=== PATIENT | female | born 1990 | race Caucasian/White ===

== ENCOUNTER 2017-06-18 06:00 | Inpatient (IN) ==
[2017-06-18] MEDS ORDERED: Metoclopramide 10 MG/2 ML VIAL IVP PRN (06:39)
[2017-06-18] MEDS ORDERED: Naloxone 0.4 MG/ML INJ IVP PRN (06:39)
[2017-06-18] MEDS ORDERED: Famotidine 20 MG/2 ML VIAL IVP PRN (06:39)
[2017-06-18] MEDS ORDERED: miSOPROStol 100 MCG TABLET PO ONE (06:45)
[2017-06-18] MEDS ORDERED: Ringers Solution, Lactated 1,000 ML IVC SCH (06:45)
[2017-06-18 08:13] LABS: Amphetamine Screen,Urine Negative ng/mL (Cutoff=1000); Barbiturate Screen,Urine Negative ng/mL (Cutoff=200); Benzodiazepines Screen,Urine Negative ng/mL (Cutoff=200); Cannabinoid Screen,Urine Negative ng/mL (Cutoff = 50); Cocaine Screen,Urine Negative ng/mL (Cutoff= 300); Opiate Screen,Urine Negative ng/mL (Cutoff=300); Phencyclidine Screen,Urine Negative ng/mL (Cutoff=25)
[2017-06-18 09:03] LABS: Basophils % 0.2 %; Eosinophils # 0.1 K/mcL (0.0-0.6); Eosinophils % 0.9 %; Immature Granulocytes % 0.6 % (0-4); Lymphocytes # 1.2 K/mcL (0.6-4.6); Lymphocytes % 13.3 %; Mean Corpuscular HGB Conc 34.4 g/dL (31.6-35.5); Mean Corpuscular Hemoglobin 30.4 pg (28.0-33.3); Mean Corpuscular Volume 88.2 fL (83.0-100.0); Mean Platelet Volume 11.3 fL (9.4-12.4); Monocytes # 0.8 K/mcL (0.0-1.3); Monocytes % 8.4 %; Neutrophils # 7.1 K/mcL (1.6-8.9); Platelet Count 170 K/mcL (140-400); Red Blood Count 4.08 M/mcL (3.82-4.97); Red Cell Distribution Width 14.3 % (11.5-14.5); Segmented Neutrophils % 76.6 %
[2017-06-18 09:05] LABS: Hemoglobin 12.4 g/dL (11.5-15.4)
--- NOTE | 2017-06-18 12:02 | OB/GYN History & Physical ---
Date of Encounter: 06/18/17 Time of Encounter: 11:51 Assessment and Plan (1) 39 weeks gestation of Current visit: Yes Status: Acute Admit to labor and delivery Oral Cytotec Labs-CBC Continuous electronic monitoring Pain management plan-epidural Anticipate Dr. Waggoner as OB concrete saw operator and is available as needed (2) Gestational diabetes mellitus (GDM) affecting first Current visit: Yes Status: Acute History of Present Illness Chief complaint: IOL HPI: Ms. Colon is a 27 year old female with an estimated date of of 06/22/17 at 39 weeks and 3 days gestation dated by early ultrasound. She presents today for induction of labor secondary to gestational diabetes controlled with oral hypoglycemics. She denies contractions, loss, vaginal bleeding and reports positive movement. Her course has been complicated by gestational diabetes. She received care from the midwives. records are available in her chart and have been reviewed. Labs: O+ GBS negative HIV negative Hep B negative T. Palladium negative Varicella immune Rubella immune Past Med Surg Social Fam HX - Past Medical History Psychiatric history: anxiety - Past Surgical History Surgical History: no surgical history - Social History Smoking Status: Former smoker Alcohol use: none Drug use: none - Family History Mother Living Status: Still Living Hx Family Cardiac Disorders: Yes (htn) Hx Family Respiratory Disorders: No Hx Family Cancer: No Hx Family GI Disorders: No Hx Family Genitourinary Disorders: No Hx Family Endocrine Disorder: Yes (DM) Hx Family Musculoskeletal Disorders: No Hx Family Neuromuscular Disorders: No Hx Family Neurologic Disorders: No Hx Family HEENT Disorders: No Hx Family Autoimmune Disorders: No Hx Family Reproductive Disorders: No Hx Family Psychosocial Disorders: Yes (Anxiety) Obstetrical History - Pregnancies : 1 Para: 0 Term: 0 : 0 Ab's: 0 Livin Medications and Allergies Ferrous Sulfate [High Potency Iron] 60 mg PO DAILY 06/18/17 [History] Metformin HCl [Metformin HCl ER] 1 tab PO DAILY 06/18/17 [History] Vit/Iron Fumarate/FA [ Tablet] 1 tab PO DAILY 06/18/17 [History ] 3 Allergy/AdvReac Type Severity Reaction Status Date / Time No Known Drug Allergies Allergy none Verified 06/18/17 06:36 Review of System OB All systems PM: reviewed and no additional remarkable complaints except as stated Exam - Constitutional Constitutional: well developed, well nourished, no acute distress, average body habitus - HEENT HEENT: Normocephaly, Mucus Membranes Moist - Neck Neck exam: full ROM - Lungs Respiratory exam: CTAB - Cardiovascular Cardiovascular exam: RRR, +S1, +S2 - Breasts Breast: bilateral: normal - Abdomen Abdomen: Present: bowel sounds normal, gravid, non tender - Extremities Extremities exam: normal inspection, radial pulses palpable and symmetrical - Vulva Vulva: bilateral: normal - Vagina Vagina: Present: normal moisture - Cervix Dilation: 2 Effacement: 60 Station: -2 - Uterus Uterus exam: Present: normal size, normal contour - Adnexa Adnexa: bilateral: normal - Anus/Rectum Anus/Rectum: Present: normal perianal skin Results Result Diagrams: 06/18/17 08:40 06/18/17 06:55 All other labs normal. - VTE Reasons for not Prescribing Prophylaxis: Treatment not Indicated - Low risk for VTE
--- NOTE | 2017-06-18 16:14 | OB Labor Progress Note ---
Date of Encounter: 06/18/17 Time of Encounter: 15:00 Labor Progress Note - Subjective Subjective: Pt states she is feeling comfortable between contractions but is aware of contractions. - Cervix Cervix: 4/80/-1 - Heart Tones Heart Tones: Baseline 120 Moderate variability Accelerations present 15 x 15 No decelerations FHR category I - [place]: Contractions every 2-5 minutes and palpate moderate - Interventions Interventions: Ambulation and birthing ball - Plan Plan: Continue expectant management Ambulating Intermittent protocol Anticipate
--- NOTE | 2017-06-18 17:13 | OB Labor Progress Note ---
Date of Encounter: 06/18/17 Time of Encounter: 17:11 Labor Progress Note - Subjective Subjective: Pt resting comfortably. She states "I don't feel like anything is happening." - Cervix Cervix: 4/80/-1 - Heart Tones Heart Tones: Baseline 130 Moderate variability Accelerations present 15x15 No decelerations FHR category I - [place] Beat[place]: Contractions every 5+ minutes and palpate mild - Interventions Interventions: SVE pitocin - Plan Plan: Continue expectant management Start pitocin and and titrate to adequate contractions May have epidural upon request Anticipate
[2017-06-18] MEDS ORDERED: Oxytocin 20 units/ LR 1000 mL 20 UNIT/1,000 ML BAG IVC SCH (17:15)
[2017-06-18] MEDS ORDERED: Oxytocin 20 units/ LR 1000 mL 20 UNIT/1,000 ML BAG IVC ONE (17:17)
--- NOTE | 2017-06-18 19:30 | OB Labor Progress Note ---
Date of Encounter: 06/18/17 Time of Encounter: 19:28 Labor Progress Note - Subjective Subjective: Pt reports she is more aware of contractions but is not yet ready for epidural. - Cervix Cervix: 4/100/0 - Heart Tones Heart Tones: Baseline 140 Moderate variability Accelerations present 15x15 No decelerations FHR Category I - [place]: Contractions every 2-3 minutes and palpate mild to moderate - Interventions Interventions: SVE - Plan Plan: Continue expectant management Continue pitocin augmentation Anticipate Dr. Waggoner aware of POC and agrees
[2017-06-18] MEDS: *HR* Nalbuphine 10 MG/ML AMPUL IVP PRN (22:43)
--- NOTE | 2017-06-19 00:10 | OB Labor Progress Note ---
Date of Encounter: 06/19/17 Time of Encounter: 00:08 Labor Progress Note - Subjective Subjective: Patient resting comfortably with Nubain - Cervix Cervix: 5/100/0 - Heart Tones Heart Tones: Baseline 125 Moderate variability No Accelerations No decelerations Pseudo-sinusoidal pattern after Nubain administration heart rate category II - [place].F. [place] J[place]. [place]: Contractions every 2-3 minutes - Plan Plan: Continue induction management Monitor blood glucose every 4 hours Epidural as needed Anticipate
[2017-06-19] MEDS ORDERED: Epidural Premix (fent/bupiv) 110 ML EP SCH (01:15)
[2017-06-19] MEDS: *HR* Nalbuphine 10 MG/ML AMPUL IVP PRN (03:11)
[2017-06-19] MEDS ORDERED: Epidural Premix (fent/bupiv) 110 ML EP ONE ×2 (03:15→11:58)
--- NOTE | 2017-06-19 03:58 | Anesthesia Evaluation PreOp ---
Date of Encounter: 06/19/17 Time of Encounter: 03:15 - Past History Planned Operation: cipriano Cardiac History: Denies any Significant Hx Pulmonary History: Denies Any Significant HX BOOT MAKER History: Denies Any Significant HX Other Medical History: Denies Any Significant HX Anesthesia History: No Prior Anesthetic Complications : Yes Test: Positive Alcohol Use: none Drug use: none Medications and Allergies Ferrous Sulfate [High Potency Iron] 60 mg PO DAILY 06/18/17 [History] Metformin HCl [Metformin HCl ER] 1 tab PO DAILY 06/18/17 [History] Vit/Iron Fumarate/FA [ Tablet] 1 tab PO DAILY 06/18/17 [History ] 3 Allergy/AdvReac Type Severity Reaction Status Date / Time No Known Drug Allergies Allergy none Verified 06/18/17 06:36 - Meds/Allergy Pre-op Review Medications Reviewed: Yes Allergies Reviewed: Yes Beta Blockers on Current Med List: No Anesthesia Results - Labs 06/18/17 08:40 06/18/17 06:55 Anesthesia Exam - HEENT Pupil (Motor): Pupils equal Mallampati: II Teeth: Normal Oral Opening: Greater than 3 - BOOT MAKER LOC: Oriented BOOT MAKER Motor: Normal RUE, Normal LUE, Normal RLE, Normal LLE, Normal Face BOOT MAKER Sensory: Normal: RUE, LUE, RLE, LLE, Face - Cardiac Rhythm: Regular Murmur: None JVD: No Carotid Bruit: No - Pulmonary Breath Sounds: bilateral Clear Respiratory Effort: Symmetrical Anesthesia Assess/Plan ASA Score: 1 Modified Gumaro Scale for Level of Consciousness: Cooperative, oriented, and tranquil Anesthetic Plan: Regional Autologous Blood: No Monitoring Plan: Standard Monitors
--- NOTE | 2017-06-19 04:01 | Anesthesia Procedures ---
Date of Encounter: 06/19/17 Time of Encounter: 03:15 Procedures: Anesthesia - Epidural/Spinal Patient ID/Chart reviewed: Yes Patient examined: Yes OB Eval: Gestational age: 39.3 OB Eval: : 1 OB Eval: Hx Para: 0 OB Eval: Dilated at (cm): 5 OB Eval: Contractions: Non-stressed pattern Consent Obtained: Yes Supplemental Oxygen: None/Room Air Site Prep: Aseptic Technique, Sterile prep and drape, Povidone-Iodine 1% Patient position: upright Amount of Local Anesthetic used: 3 Touhy Needle Gauge: 18 Touhy Needle Depth (cm): 7 Catheter Depth at Skin (cm): 9 Test Dose (1.5% Lido + Epi): Volume given (mls): 3 Test Dose Result: Negative Infusion Rate (mls/hr): [address]: Tegaderm, Tape Interspace Used: L4-L5 Loss of Resistance (MAY): Yes Blood: No CSF: No Paresthesia: No Vitals + FHT's: stable see nursing notes
--- NOTE | 2017-06-19 04:05 | OB Labor Progress Note ---
Date of Encounter: 06/19/17 Time of Encounter: 04:02 Labor Progress Note - Subjective Subjective: Pt now comfortable with epidural. - Cervix Cervix: 5/100/0 - Heart Tones Heart Tones: Baseline 130 Moderate variability Accelerations present 15 x 15 Few decelerations FHR Category II - [place]: Contractions every 2 minutes and palpate mild to moderate - Interventions Interventions: SVE IUPC SROM - thick meconium - Plan Plan: Continue induction management Increase pitocin as needed Use peanut ball for position changes Anticipate
--- NOTE | 2017-06-19 10:36 | OB Labor Progress Note ---
Date of Encounter: 06/19/17 Time of Encounter: 10:33 Labor Progress Note - Subjective Subjective: Pt comfortable with epidural. - Cervix Cervix: 6/100/-2 (pt was previously at 0 station). Further assessment reveals that there is no miller catheter in place. - Heart Tones Heart Tones: Category II, some early, late, and variable decelerations noted. Late decelerations occurred while pt in supine position for miller placement. Moderate variability noted. - Callahan Callahan: 2-4 minutes - Interventions Interventions: FSE placed. Miller catheter placed using sterile technique. 1 liter urine output noted. - Plan Plan: Pt repositioned to left lateral after miller placement. Continue to monitor. Anticipate .
[2017-06-19] MEDS ORDERED: *HR* FentaNYL (PF) 100 MCG/2 ML VIAL ONE (14:07)
[2017-06-19] MEDS ORDERED: Lidocaine -MPF 2% 5 ML VIAL ONE (14:07)
--- NOTE | 2017-06-19 14:20 | Anesthesia Progress Note ---
Date of Encounter: 06/19/17 Time of Encounter: 14:18 Anesthesia Note - Note Note: called to patient bedside to evaluate breakthrough labor pain. Per L&D staff, patient is ready to "push" but is experiencing too much discomfort on L side of abdomen. Patient positioned semi LLD and 7.5 mL of 2% lido + 100mcg fentanyl administered through catheter. Patient reports improvement in pain level. VSS. 06/19/17 14:18
--- NOTE | 2017-06-19 17:27 | OB/GYN Procedure Note ---
Delivery - Delivery Date: 06/19/17 Provider: Julee Miller Intrapartum events: meconium Delivery induction: misoprostol Delivery augmentation: pitocin Delivery monitor: internal FHT, internal uterine Anesthesia: epidural Estimated Blood Loss: 150 - (s) Infant A Delivery Date: 06/19/17 Delivery Time: 16:52 Presentation: vertex Position: ROLDAN Route of delivery: Gender: Female Viability: Viable Pounds: 7 Ounces: 1 Weight Gram: 3.2 kg at 1 minute: 9 at 5 mins: 9 Shoulder Dystocia: not encountered Specimens collected: cord blood Placenta: spontaneous Cord: 3 umbilical vessels - Repair Episiotomy: none Laceration Description: Perineal - 1st Degree - Complications Delivery complications: none Delivery comments: Pt presented at 39 weeks for IOL due to GDMA2. She received cytotec and pitocin as well as an epidural. She progressed and pushed well to [facility] for viable female weighing 7lbs 1oz with apgars 9at one minute and 9 at five minutes. After pulsations ceased the cord was clamped and cut and the placenta delivered spontaneous and intact (david). A small first degree laceration in the left side of the perineum was repaired with 2-0 monocryl. - Disposition Mom disposition: stable in LDR disposition: stable in LDR
[2017-06-19] MEDS ORDERED: Acetaminophen 325 MG TABLET PO PRN (19:27)
[2017-06-19] MEDS ORDERED: Ibuprofen 600 MG TABLET PO PRN (19:27)
[2017-06-19] MEDS ORDERED: Oxytocin 20 units/ LR 1000 mL 20 UNIT/1,000 ML BAG IVC SCH (19:27)
[2017-06-19] MEDS ORDERED: Measles/Mumps/Rubella Vacc 0.5 ML VIAL SQ PRN (19:27)
[2017-06-19] MEDS ORDERED: Benzocaine/Menthol 56 GM AEROSOL SPRAY TP PRN (19:27)
[2017-06-19] MEDS ORDERED: Lanolin 28 GM TUBE TP PRN (19:27)
[2017-06-20 08:12] VITALS: BP 119/76
[2017-06-20] MEDS ORDERED: Prenatal Vit/FA 1 EACH TABLET PO SCH (09:00)
--- NOTE | 2017-06-20 11:22 | Discharge Summary ---
Date of Encounter: 06/20/17 Time of Encounter: 11:18 - Discharge Diagnosis (1) Vaginal delivery Priority: Primary Status: Acute Comments: Stable in PP, pain well managed on po pain medication, tolerates diet, breastfeeing, desires discharge. - Discharge Medications Prescriptions: Ibuprofen [Motrin] 600 mg PO Q6HR PRN #60 tablet PRN Reason: Cramping Docusate [Colace] 100 mg PO BID #60 capsule Home Medications: Vit/Iron Fumarate/FA [ Tablet] 1 tab PO DAILY 06/18/17 [History ] Acetaminophen [Tylenol] 650 mg PO Q6HR PRN tablet 06/20/17 [Rx] Docusate [Colace] 100 mg PO BID #60 capsule 06/20/17 [Rx] Ibuprofen [Motrin] 600 mg PO Q6HR PRN #60 tablet 06/20/17 [Rx] Lanolin 1 appl TP Q4HR PRN tube 06/20/17 [Rx] Vit/FA 1 each PO DAILY tablet 06/20/17 [Rx] Allergies/Adverse Reactions: 3 Allergy/AdvReac Type Severity Reaction Status Date / Time No Known Drug Allergies Allergy none Verified 06/18/17 06:36 Data Procedures and tests throughout hospitalization: Laboratory Tests 06/18/17 06/18/17 06/18/17 06:39 06:41 06:55 WBC RBC Hgb Hct MCV MCH MCHC RDW Plt Count MPV Immature Gran % Seg Neutrophils % Lymphocytes % Monocytes % Eosinophils % Basophils % Neutrophils # Lymphocytes # Monocytes # Eosinophils # Basophils # Glucose 101 POC Glucose Urine Opiates Screen Negative Ur Barbiturates Screen Negative Ur Phencyclidine Scrn Negative Ur Amphetamines Screen Negative U Benzodiazepines Scrn Negative Urine Cocaine Screen Negative U Marijuana (THC) Screen Negative Specimen Rejected Clotted 06/18/17 06/18/17 06/18/17 08:40 10:57 17:02 WBC 9.3 RBC 4.08 Hgb 12.4 Hct 36.0 MCV 88.2 MCH 30.4 MCHC 34.4 RDW 14.3 Plt Count 170 MPV 11.3 Immature Gran % 0.6 Seg Neutrophils % 76.6 Lymphocytes % 13.3 Monocytes % 8.4 Eosinophils % 0.9 Basophils % 0.2 Neutrophils # 7.1 Lymphocytes # 1.2 Monocytes # 0.8 Eosinophils # 0.1 Basophils # 0.0 Glucose POC Glucose 92 104 H Urine Opiates Screen Ur Barbiturates Screen Ur Phencyclidine Scrn Ur Amphetamines Screen U Benzodiazepines Scrn Urine Cocaine Screen U Marijuana (THC) Screen Specimen Rejected 06/18/17 06/19/17 06/19/17 21:31 04:31 11:08 WBC RBC Hgb Hct MCV MCH MCHC RDW Plt Count MPV Immature Gran % Seg Neutrophils % Lymphocytes % Monocytes % Eosinophils % Basophils % Neutrophils # Lymphocytes # Monocytes # Eosinophils # Basophils # Glucose POC Glucose 92 109 H 90 Urine Opiates Screen Ur Barbiturates Screen Ur Phencyclidine Scrn Ur Amphetamines Screen U Benzodiazepines Scrn Urine Cocaine Screen U Marijuana (THC) Screen Specimen Rejected 06/20/17 06:47 WBC RBC Hgb Hct MCV MCH MCHC RDW Plt Count MPV Immature Gran % Seg Neutrophils % Lymphocytes % Monocytes % Eosinophils % Basophils % Neutrophils # Lymphocytes # Monocytes # Eosinophils # Basophils # Glucose POC Glucose 89 Urine Opiates Screen Ur Barbiturates Screen Ur Phencyclidine Scrn Ur Amphetamines Screen U Benzodiazepines Scrn Urine Cocaine Screen U Marijuana (THC) Screen Specimen Rejected Labs on day of discharge: Labs from last 24 hours 06/20/17 06:47 POC Glucose 89 Date of admission: 06/18/17 06:00 Primary care physician: PCP NONE Consults: 06/19/17 19:27 Consult to Tree Surgeon Helper [CONS] Routine Comment: Vaginal delivery, consult needed Discharging clinician: Lulú Gaytan Anticipated date of discharge: 06/20/17 - Patient Status Disposition: Home, Self-Care Condition: Good Functional capacity at discharge: independent ambulation Overall status at discharge: patient is progressing back to baseline - Discharge Instructions Follow Up With: NONE,PCP [Primary Care Provider] - - Diet and Activity Activity: resume usual activities as tolerated Diet: regular diet Hospital Course Reason for admission: induction of labor, IUP at term Delivery: Episiotomy: none Laceration: 1st degree Other procedures: none complications: none Discharge diagnosis: IUP at term delivered Ferdinand baby: female Hospital course: Delivery - Delivery Date: 06/19/17 Provider: Julee Miller Intrapartum events: meconium Delivery induction: misoprostol Delivery augmentation: pitocin Delivery monitor: internal FHT, internal uterine Anesthesia: epidural Estimated Blood Loss: 150 - Infant (s) Infant A Infant Delivery Date: 06/19/17 Infant Delivery Time: 16:52 Presentation: vertex Position: ROLDAN Route of delivery: Gender: Female Viability: Viable Pounds: 7 Ounces: 1 Weight Gram: 3.2 kg at 1 minute: 9 at 5 mins: 9 Shoulder Dystocia: not encountered Specimens collected: cord blood Placenta: spontaneous Cord: 3 umbilical vessels - Repair Episiotomy: none Laceration Description: Perineal - 1st Degree - Complications Delivery complications: none Delivery comments: Pt presented at 39 weeks for IOL due to GDMA2. She received cytotec and pitocin as well as an epidural. She progressed and pushed well to [facility] for viable female weighing 7lbs 1oz with apgars 9at one minute and 9 at five minutes. After pulsations ceased the cord was clamped and cut and the placenta delivered spontaneous and intact (david). A small first degree laceration in the left side of the perineum was repaired with 2-0 monocryl. - Disposition Mom disposition: stable inPP and appropriate for discharge Time Attestation: Total time spent providing and/or coordinating discharge services: Time Spent: Less than 30 minutes Exam - Constitutional Vitals: Temp Pulse Resp BP Pulse Ox 97.9 F 91 14 119/76 98 06/20/17 08:10 06/20/17 08:10 06/20/17 08:10 06/20/17 08:10 06/20/17 08:10 General appearance IM: A&O X 3 - Respiratory Respiratory exam: Present: CTAB - Cardiovascular Cardiovascular exam IM: Present: RRR - GI/Abdominal GI/Abdominal exam IM: soft - Uterine Tone: Firm Uterus Position: At Umbilicus - Extremities Exam Extremities exam IM: Present: normal capillary refill, normal inspection - Neurological Exam Neurological exam: normal gait, oriented X3 - Psychiatric Additional comments: Reports good mood
== END 2017-06-20 16:15 | disposition home or self-care (01) | DRG 775 ==
LOC: 1NENULAB 06:00 → 1NENUOBS 06-19 20:39
PROVIDERS: ADMIT Advanced Practice Midwife; ATTEND Advanced Practice Midwife

== ENCOUNTER 2020-04-30 13:12 | Observation (INO) ==
[2020-04-30] MEDS ORDERED: Melatonin 3 MG TABLET PO PRN (15:17)
[2020-04-30] MEDS ORDERED: Ketorolac 15 MG/ML VIAL IVP PRN (15:17)
[2020-04-30] MEDS ORDERED: Mag Hydrox/Al Hydrox/Simeth 30 ML UDC PO PRN (15:17)
[2020-04-30] MEDS ORDERED: Naloxone 0.4 MG/ML INJ IVP PRN (15:17)
[2020-04-30] MEDS ORDERED: Ondansetron ODT 4 MG TAB.RAPDIS SL PRN (15:17)
[2020-04-30] MEDS ORDERED: cefTRIAXone 1,000 MG in Water for inj. (sterile) 10 ML IVP SCH (16:00)
[2020-04-30] MEDS ORDERED: *HR* LORazepam 2 MG/ML VIAL IVP ONE (17:31)
[2020-05-01 06:08] LABS: Hematocrit 40.7 % (35.3-44.9); Hemoglobin 12.9 g/dL (11.5-15.4); Mean Corpuscular HGB Conc 31.7 g/dL (31.6-35.5); Mean Corpuscular Volume 88.5 fL (83.0-100.0); Mean Platelet Volume 9.8 fL (9.4-12.4); Platelet Count 193 K/mcL (140-400); Red Cell Distribution Width 12.4 % (11.5-14.5); White Blood Count 7.1 K/mcL (4.3-11.1)
[2020-05-01 06:34] LABS: BUN/Creatinine Ratio 10 (6-26); Blood Urea Nitrogen 8 mg/dL (6-20); Calcium 8.7 mg/dL (8.6-10.3); Carbon Dioxide 23 mEq/L (23-29); Chloride 110 mEq/L (98-107); Glucose 102 mg/dL (70-105); Osmolality,Calculated 287 (280-300); Potassium 4.2 mEq/L (3.5-5.1); Sodium 139 mEq/L (136-145); eGFR For African Americans > 60 (> 60); eGFR For Non-African Americans > 60 (> 60)
[2020-05-01] MEDS ORDERED: *HR* OxyCODONE Immed Rel 5 MG TABLET PO PRN (11:47)
[2020-05-01] MEDS ORDERED: Ondansetron 4 MG/2 ML VIAL IVP PRN (11:47)
[2020-05-01] MEDS ORDERED: Famotidine 20 MG/2 ML VIAL ONE (11:51)
[2020-05-01] MEDS ORDERED: Acetaminophen IV 1,000 MG/100 ML BAG IVPB ONE (11:51)
[2020-05-01] MEDS ORDERED: *HR* Midazolam HCl 2 MG/2 ML VIAL ONE (11:53)
[2020-05-01] MEDS ORDERED: *HR* Propofol 200 MG/20 ML VIAL IVP ONE (11:58)
[2020-05-01] MEDS ORDERED: *HR* FentaNYL (PF) 100 MCG/2 ML VIAL ONE (11:58)
[2020-05-01] MEDS ORDERED: Ondansetron 4 MG/2 ML VIAL ONE (11:58)
[2020-05-01] MEDS ORDERED: Dexamethasone 4 MG/ML VIAL ONE (11:58)
[2020-05-01] MEDS ORDERED: Lidocaine -MPF 2% 2 ML VIAL ONE (11:58)
[2020-05-01] MEDS ORDERED: Isovue-300 50ML VIAL ONE (12:32)
[2020-05-01] MEDS ORDERED: Ketorolac 30 MG/ML VIAL ONE (13:22)
[2020-05-01] MEDS ORDERED: Ondansetron ODT 4 MG TAB.RAPDIS SL PRN (14:27)
[2020-05-01] MEDS ORDERED: Mag Hydrox/Al Hydrox/Simeth 30 ML UDC PO PRN (14:27)
[2020-05-01] MEDS ORDERED: Melatonin 3 MG TABLET PO PRN (14:27)
[2020-05-01] MEDS ORDERED: Naloxone 0.4 MG/ML INJ IVP PRN (14:27)
[2020-05-01] MEDS ORDERED: Ketorolac 15 MG/ML VIAL IVP PRN (14:27)
[2020-05-01] MEDS ORDERED: cefTRIAXone 1,000 MG in Water for inj. (sterile) 10 ML IVP SCH (15:00)
[2020-05-01 17:35] VITALS: BP 124/75
== END 2020-05-01 17:59 | disposition home or self-care (01) ==
LOC: 3BNU → SUATTDRO 14:43
PROVIDERS: ADMIT Internal Medicine; ATTEND Internal Medicine